=== PATIENT | female | born 1990 | race Caucasian/White ===

== ENCOUNTER → 2016-11-01 | Outpatient (CLI) | payer OTHER | END | disposition home or self-care (01) | LOC: LABWHC1 16:47 | PROVIDERS: ATTEND Obstetrics & Gynecology | DX: Z34.80 Encounter for supervision of other normal pregnancy, unspecified trimester (principal); Z3A.00 Weeks of gestation of pregnancy not specified | CPT/HCPCS: 36415; 84702 ==

== ENCOUNTER 2017-06-22 04:25 | Inpatient (IN) | payer OTHER ==
[2017-06-22] MEDS ORDERED: METHYLERGONOVINE 0.2 MG/ML 1 ML AMP IM PRN (04:43)
[2017-06-22] MEDS ORDERED: LIDOCAINE 1% (PF) 10 MG/ML (30 ML SDV) SQ PRN (04:43)
[2017-06-22] MEDS ORDERED: AMPICILLIN 2,000 MG in SODIUM CHLORIDE 0.9% 100 ML IVPB STA (04:43)
[2017-06-22] MEDS ORDERED: CARBOPROST TROMETHAMINE 250 MCG/ML 1 ML AMP IM PRN (04:43)
[2017-06-22] MEDS ORDERED: OXYTOCIN 10 UNIT/ML 1 ML VIAL IM PRN (04:43)
[2017-06-22] MEDS ORDERED: TERBUTALINE 1 MG/ML VIAL SQ PRN (04:43)
[2017-06-22] MEDS ORDERED: LACTATED RINGERS 1,000 ML IV SCH (04:45)
[2017-06-22 04:59] VITALS: BMI 36.4
[2017-06-22 05:13] LABS: Basophils % (A) 0 %; Eosinophils # (A) 0.1 k/uL (0-0.7); Eosinophils % (A) 1 %; HCT 35.4 % (34.0-46.0); HGB 12.1 gm/dL (11.4-16.0); Lymphocytes % (A) 27 %; MCH 28.8 pg (25.0-35.0); MCHC 34.2 g/dL (31.0-37.0); MCV 84.2 fL (80.0-100.0); Mean Platelet Volume 10.3; Monocytes # (A) 0.7 k/uL (0-1.0); Monocytes % (A) 6 %; Neutrophils # (A) 7.3 k/uL (1.3-7.7); Neutrophils % (A) 64 %; Platelet Count 216 k/uL (150-450); Poikilocytosis Slight; RBC 4.21 m/uL (3.80-5.40); RDW 13.4 % (11.5-15.5); WBC 11.4 k/uL (3.8-10.6)
[2017-06-22] MEDS: LACTATED RINGERS 1,000 ML IV SCH ×2 (05:16→06:00)
[2017-06-22] MEDS ORDERED: BUPIVACAINE (PF) 0.25% 30 ML VIAL ONE (05:42)
[2017-06-22] MEDS ORDERED: fentaNYL (PF) 50 MCG/ML 5 ML AMP ONE (05:42)
[2017-06-22] MEDS ORDERED: SODIUM CHLORIDE 0.9% 100 ML BAG ONE (05:42)
[2017-06-22] MEDS ORDERED: BUPIVACAINE (PF) 0.25% 25 ML, fentaNYL (PF) 200 MCG in SODIUM CHLORIDE 0.9% 71 ML EPIDURAL ONE (06:09)
[2017-06-22] MEDS ORDERED: diphenhydrAMINE 50 MG CAP PO PRN (08:52)
[2017-06-22] MEDS ORDERED: SIMETHICONE 80 MG CHEWABLE PO PRN (08:52)
[2017-06-22] MEDS ORDERED: diphenhydrAMINE 50 MG/ML 1 ML VIAL IVP PRN ×2 (08:52)
[2017-06-22] MEDS ORDERED: LANOLIN CREAM 5 GM TUBE TOPICAL PRN (08:52)
[2017-06-22] MEDS ORDERED: BENZOCAINE/MENTHOL SPRAY 1 GM/SPRAY AEROSOL TOPICAL PRN (08:52)
[2017-06-22] MEDS ORDERED: HYDROCORTISONE 2.5% RECTAL CREAM 30 GM TUBE RECTAL PRN (08:52)
[2017-06-22] MEDS ORDERED: ZOLPIDEM 5 MG TAB PO PRN (08:52)
[2017-06-22] MEDS ORDERED: WITCH HAZEL 1 EACH MED..PAD TOPICAL PRN (08:52)
[2017-06-22] MEDS ORDERED: diphenhydrAMINE 25 MG CAP PO PRN (08:52)
--- NOTE | 2017-06-22 08:56 | P.HPOB ---
History of Present Illness H&P Date: 06/22/17 Chief Complaint: Intrauterine at term: Active labor Patient is a 27-year-old at 39 weeks gestation arise in active labor making cervical change. Her course itself was unremarkable other than some ligamentous pain throughout the . She also had some reflux. However at this time she is doing well and feeling well. She was dilated to 4 cm heart tones in the 140s and reactive. Pertinent labs include O+ blood type Rh antibody negative, rubella immune, hepatitis B surface antigen and RPR were negative GBS however was positive. Past Medical History Past Medical History: No Reported History History of Any Multi-Drug Resistant Organisms: ESBL Date of last positivie culture/infection: 02/04/2014 MDRO Source:: Urine Past Surgical History: No Surgical Hx Reported Past Anesthesia/Blood Transfusion Reactions: No Reported Reaction Past Psychological History: Anxiety, Bipolar, Depression Smoking Status: Never smoker Past Alcohol Use History: Occasional Past Drug Use History: Marijuana - Past Family History Mother Family Medical History: No Reported History Medications and Allergies Home Medications Medication Instructions Recorded Confirmed Type Nfb-Qzpc-Twfnn Acid 1 each PO DAILY 30 Days cap 01/25/14 06/22/17 Rx [-U Capsule (formulary)] Allergies Allergy/AdvReac Type Severity Reaction Status Date / Time No Known Allergies Allergy Verified 06/22/17 04:28 Exam Osteopathic Statement: *. No significant issues noted on an osteopathic structural exam other than those noted in the History and Physical/Consult. - Vital Signs Vital signs: Vital Signs Temp Pulse Resp BP Pulse Ox 06/22/17 04:54 97.5 F L 107 H 18 127/84 06/22/17 04:45 97.0 F L 100 18 132/91 100 Intake and Output 06/21/17 06/22/17 06/22/17 22:59 06:59 14:59 Other: # Voids 1 Weight 99.337 kg - OBG Physical Exam Breast: both: normal (no masses) Abdomen: bowel sounds normal, no diffuse tenderness, no bruit present, no guarding noted, no hepatomegaly, no splenomegaly, no mass Vulva: both: normal Vagina: normal moisture, no discharge Cervix: no lesion, no discharge Uterus: normal size, normal contour Adnexa: both: normal Anus/Rectum: normal perianal skin, no rectal mass, no hemorrhoids, heme negative Results Result Diagrams: 06/22/17 05:00 Abnormal Lab Results - Last 24 Hours (Table) 06/22/17 Range/Units 05:00 WBC 11.4 H (3.8-10.6) k/uL Assessment and Plan Assessment: Intrauterine at term: Active labor Group B strep positive Plan antibiotics for group B strep and anticipate spontaneous vaginal delivery with epidural for analgesia
--- NOTE | 2017-06-22 08:59 | P.PROBDLV ---
Vaginal Delivery Note - . Vaginal Delivery Note: Patient progressed to complete and pushing with spontaneous vaginal delivery of a viable female over a first repair the laceration. Following delivery of the head nuchal cord 1 was noted and easily reduced. Interim posterior shoulders were then delivered with gentle downward upper traction and baby was delivered from left occiput anterior position. Baby was delivered was placed on mother's abdomen where after 30 seconds of pulsation the umbilical cord was clamped cut usual fashion. Nursery personnel was then present to assume care. Placenta was then delivered intact and Pitocin was added to the IV. First degree laceration was then repaired in interrupted fashion with 3-0 Vicryl following 1% Xylocaine for analgesia. Weight was 8 lbs. 6 oz. scores were 8 and 8 at one and 5 minutes. Both mother and baby are stable following delivery.
[2017-06-22] MEDS ORDERED: AMPICILLIN 1,000 MG in SODIUM CHLORIDE 0.9% 50 ML IVPB SCH (09:00)
[2017-06-22] MEDS: IBUPROFEN 600 MG TAB PO PRN (18:33)
[2017-06-22] MEDS: SENNOSIDES-DOCUSATE SODIUM 1 EACH TAB PO SCH (19:44)
[2017-06-22] MEDS: ACETAMINOPHEN TAB 325 MG TAB PO PRN (19:45)
[2017-06-23] MEDS: SENNOSIDES-DOCUSATE SODIUM 1 EACH TAB PO SCH ×2 (07:15→22:38)
[2017-06-23] MEDS: IBUPROFEN 600 MG TAB PO PRN ×2 (07:15→19:58)
[2017-06-23] MEDS: LACTATED RINGERS 1,000 ML IV SCH ×2 (07:40→14:49)
--- NOTE | 2017-06-23 08:02 | P.PNOBGVD ---
Subjective - Subjective Principal diagnosis: day 1 Interval history: Doing very well. Vital signs are stable and afebrile. Voices no complaints. Patient reports: Reports appetite normal, Reports voiding normally, Reports pain well controlled, Reports ambulating normally : doing well Objective - Latest Vital Signs Latest vital signs: Vital Signs Temp Pulse Resp BP 06/23/17 00:00 97.6 F 64 16 121/72 06/22/17 20:00 97.8 F 80 16 131/69 06/22/17 16:47 98.2 F 71 16 129/67 06/22/17 11:04 76 16 114/63 06/22/17 10:15 97.9 F 82 16 113/56 06/22/17 09:54 81 16 112/56 06/22/17 09:30 81 16 116/59 06/22/17 09:15 75 16 120/59 06/22/17 09:00 98.6 F 81 16 120/59 06/22/17 08:45 95 16 132/79 Intake and Output 06/22/17 06/23/17 06/23/17 22:59 06:59 14:59 Intake Total 600 600 Balance 600 600 Intake: Oral 600 600 - Exam Lungs: bilateral: normal Chest: Normal S1, Normal S2 Extremities: Present: normal Abdomen: Present: normal appearance, soft Uterus: Present: normal, firm
[2017-06-23] MEDS: ACETAMINOPHEN TAB 325 MG TAB PO PRN ×2 (10:52→18:48)
--- NOTE | 2017-06-24 07:07 | P.DS ---
Providers Date of admission: 06/22/17 04:43 Expected date of discharge: 06/24/17 Attending physician: Omsar Ascencio Primary care physician: Stated None Hospital Course: Patient is doing very well day 2. She is ambulating, voiding and she is tolerating her diet. She voices no complaints. Vital signs are stable afebrile. On physical exam heart regular, lungs clear, extremities without pain. Abdomen soft uterus is firm, lochia is reported be light. Assessment day 2. Plan discharged home follow up with me in 6 weeks. Discharge instructions are thoroughly reviewed and prescription for Motrin and a breast pump have been provided. Patient Condition at Discharge: Good Plan - Discharge Summary New Discharge Prescriptions: New Ibuprofen [Motrin] 600 mg PO Q6HR PRN #30 tab PRN Reason: Pain No Action Asb-Lazv-Eukqj Acid [-U Capsule (formulary)] 1 each PO DAILY 30 Days cap Discharge Medication List Qws-Xgdc-Ytrdy Acid [-U Capsule (formulary)] 1 each PO DAILY 30 Days cap 01/25/14 [Rx] Ibuprofen [Motrin] 600 mg PO Q6HR PRN #30 tab 06/23/17 [Rx] Follow up Appointment(s)/Referral(s): Osmar Ascencio DO [Doctor of Osteopathic Medicine] - 6 Weeks Activity/Diet/Wound Care/Special Instructions: No heavy lifting, limit stairs and driving and pelvic rest. If any high temperatures, heavy bleeding, or severe pain call my office Discharge Disposition: HOME SELF-CARE
[2017-06-24] MEDS: IBUPROFEN 600 MG TAB PO PRN (07:22)
[2017-06-24 08:01] VITALS: BP 121/73; PULSE 73; RESP 15; TEMP 97.8
== END 2017-06-24 14:35 | disposition home or self-care (01) | DRG 775 ==
LOC: FBPOP 04:25 → 4FBP 04:43
PROVIDERS: ADMIT Obstetrics & Gynecology; ATTEND Obstetrics & Gynecology
PROC: 10E0XZZ Delivery of Products of Conception, External Approach (ICD-10-PCS; principal; 2017-06-22)
PROC: 0HQ9XZZ Repair Perineum Skin, External Approach (ICD-10-PCS; 2017-06-22)
PROC: 00HU33Z Insertion of Infusion Device into Spinal Canal, Percutaneous Approach (ICD-10-PCS; 2017-06-22)
PROC: 3E0R3BZ Introduction of Anesthetic Agent into Spinal Canal, Percutaneous Approach (ICD-10-PCS; 2017-06-22)
DX: O99.824 Streptococcus B carrier state complicating childbirth (principal); Z37.0 Single live birth; O69.81X0 Labor and delivery complicated by cord around neck, without compression, not applicable or unspecified; O70.0 First degree perineal laceration during delivery; O99.62 Diseases of the digestive system complicating childbirth; Z3A.39 39 weeks gestation of pregnancy; K21.9 Gastro-esophageal reflux disease without esophagitis; Z79.899 Other long term (current) drug therapy; Z86.19 Personal history of other infectious and parasitic diseases; Z86.59 Personal history of other mental and behavioral disorders
CPT/HCPCS: 59025; 85025; 88307; 99213

== ENCOUNTER 2019-03-02 13:10 | Emergency (ER) | payer OTHER ==
[2019-03-02 13:32] VITALS: BP 124/81; PULSE 127; RESP 20
[2019-03-02] MEDS: ACETAMINOPHEN TAB 325 MG TAB PO STA (13:51)
--- NOTE | 2019-03-02 14:08 | XR ---
EXAMINATION TYPE: XR chest 2V DATE OF EXAM: 03/02/2019 COMPARISON: NONE HISTORY: Fever, and congestion TECHNIQUE: Frontal and lateral views of the chest are obtained. FINDINGS: There is no focal air space opacity, pleural effusion, or pneumothorax seen. The cardiac silhouette size is within normal limits. The osseous structures are intact. IMPRESSION: No acute cardiopulmonary process.
--- NOTE | 2019-03-02 15:01 | ED ---
URI HPI - General Chief Complaint: Upper Respiratory Infection Stated Complaint: poss flu Time Seen by Provider: 03/02/19 13:40 Source: patient Mode of arrival: ambulatory Limitations: no limitations - History of Present Illness Initial Comments: 28-year-old female with childhood vaccinations up-to-date presents emergency department today for fever cough congestion x 48 hours. She states all 4 other people in her household have identical symptoms she states it began with her son approximately 5-7 days ago. She states she's also had a sore throat. Today fever was 102. Patient denies nausea, vomiting, diarrhea, rash, neck stiffness, headache. Admit to body aches. Patient appears nontoxic on arrival, no respiratory distress. Oxygenating well room air hemodynamically stable. - Related Data Previous Rx's Medication Instructions Recorded Fvc-Jjgl-Kqynf Acid 1 each PO DAILY 30 Days cap 01/25/14 [-U Capsule (formulary)] Ibuprofen [Motrin] 600 mg PO Q6HR PRN #30 tab 06/23/17 Oseltamivir [Tamiflu] 75 mg PO Q12HR 5 Days #10 cap 03/02/19 Allergies Allergy/AdvReac Type Severity Reaction Status Date / Time No Known Allergies Allergy Verified 03/02/19 13:31 Review of Systems ROS Statement: Those systems with pertinent positive or pertinent negative responses have been documented in the HPI. ROS Other: All systems not noted in ROS Statement are negative. Past Medical History Past Medical History: No Reported History History of Any Multi-Drug Resistant Organisms: ESBL Date of last positivie culture/infection: 02/04/2014 MDRO Source:: Urine Past Surgical History: No Surgical Hx Reported Past Anesthesia/Blood Transfusion Reactions: No Reported Reaction Past Psychological History: Anxiety, Bipolar, Depression Smoking Status: Never smoker Past Alcohol Use History: Occasional Past Drug Use History: Marijuana - Past Family History Mother Family Medical History: No Reported History General Exam - General Exam Comments Initial Comments: General: The patient is awake and alert, in no distress Eye: +3 mm pupils are equal, round and reactive to light, extra-ocular movements are intact. No nystagmus. There is normal conjunctiva bilaterally. No signs of icterus. No photophobia Ears, nose, mouth and throat: There are moist mucous membranes and no oral lesions. Oropharynx was not erythematous there is no tonsillar enlargement exudates or lesions. Uvula midline. Tympanic membranes are not erythematous or is no effusions bulging or retraction. No tenderness to palpation of the mastoid. No anterior cervical lymphadenopathy. Rhinorrhea, clear and bilateral nares. No tripoding, no drooling. Neck: The neck is supple, there is no tenderness or JVD. No nuchal rigidity Cardiovascular: There is a regular rate and rhythm. No murmur, rub or gallop is appreciated. Respiratory: Lungs are clear to auscultation, respirations are non-labored, breath sounds are equal. No wheezes, stridor, rales, or rhonchi. No retractions or abdominal breathing. Gastrointestinal: Soft, non-distended, non-tender abdomen without masses or organomegaly noted. There is no rebound or guarding present. Bowel sounds are unremarkable. Musculoskeletal: Normal ROM, no tenderness. Strength 5/5. Sensation intact. Radial pulses equal bilaterally 2+. Neurological: A&O x 3. CN II-XII intact grossly, There are no obvious motor or sensory deficits. Coordination appears grossly intact. Speech appears normal, no muffling. Skin: Skin is warm and dry and no rashes or lesions are noted. No extremity edema Psychiatric: Cooperative Limitations: no limitations Course Vital Signs 03/02/19 03/02/19 03/02/19 13:31 13:59 15:15 Temperature 101.7 F H 101.6 F H 100.2 F H Pulse Rate 127 H Respiratory 20 Rate Blood Pressure 124/81 O2 Sat by Pulse 97 Oximetry Medical Decision Making - Medical Decision Making 28-year-old female presenting today for chief complaint of fever, cough congestion. Influenza B-positive. Positive sick contacts. Chest x-ray clear. Oxygen while room air does not appear in respiratory distress with clear lung sounds. At this time feel patient is stable for discharge with Tamiflu as symptoms have been ongoing for less than 72 hours. Patient is agreeable to this care plan as well as use of antipyretics for fever treatment. Return parameters were discussed at length and patient was discharged appearing well_Case discussed wt Dr. Rahman - Lab Data Lab Results 03/02/19 Range/Units 13:30 Influenza Type A RNA Not Detected (Not Detectd) Influenza Type B (PCR) Detected H (Not Detectd) Disposition Clinical Impression: Fever, Cough, Influenza B Disposition: HOME SELF-CARE Condition: Good Instructions (If sedation given, give patient instructions): Influenza (ED) Additional Instructions: Please use medication as discussed. Please follow-up with family doctor in the next 2 days. Please return to emergency room if the symptoms increase or worsen or for any other concerns. Prescriptions: Oseltamivir [Tamiflu] 75 mg PO Q12HR 5 Days #10 cap Is patient prescribed a controlled substance at d/c from ED?: No Referrals: None,Stated [Primary Care Provider] - 1-2 days Time of Disposition: 15:01
[2019-03-02 15:16] VITALS: TEMP 100.2
== END 2019-03-02 15:15 | disposition home or self-care (01) ==
LOC: EC 13:10
DX: J10.1 Influenza due to other identified influenza virus with other respiratory manifestations (principal); Z20.89 Contact with and (suspected) exposure to other communicable diseases
CPT/HCPCS: 71046; 87502; 99283

== ENCOUNTER 2023-07-11 09:28 | Emergency (ER) | payer OTHER ==
[2023-07-11 10:13] VITALS: RESP 16
--- NOTE | 2023-07-11 10:23 | ED ---
Skin/Abscess/FB HPI - General Chief complaint: Skin/Abscess/Foreign Body Stated complaint: Rash Time Seen by Provider: 07/11/23 09:50 Source: patient Mode of arrival: ambulatory Limitations: no limitations - History of Present Illness Initial comments: This is a 33-year-old female presents emergency department chief complaint of a rash to her scalp and neck. Patient states that she noticed the rash off on her scalp 3 days ago that is pruritic. Additionally the areas in her neck Began popping up over the past day. She reports feelings of malaise in addition to the areas being pruritic with mild discharge. Patient has a history of chickenpox virus, denies history of shingles. She denies you use of soaps, detergents, lotions or fragrances. Has fevers, nausea, vomiting, rhinorrhea, cough. Denies paresthesias of the face or tenderness or decrease in hearing. - Related Data Previous Rx's Medication Instructions Recorded Cjz-Ygsc-Eusyn Acid 1 each PO DAILY 30 Days cap 01/25/14 [-U Capsule (formulary)] Ibuprofen [Motrin] 600 mg PO Q6HR PRN #30 tab 06/23/17 Oseltamivir [Tamiflu] 75 mg PO Q12HR 5 Days #10 cap 03/02/19 Acyclovir [Zovirax] 800 mg PO TID #30 tab 07/11/23 predniSONE 50 mg PO DAILY #5 tab 07/11/23 Allergies Allergy/AdvReac Type Severity Reaction Status Date / Time No Known Allergies Allergy Verified 07/11/23 09:47 Review of Systems ROS Statement: Those systems with pertinent positive or pertinent negative responses have been documented in the HPI. ROS Other: All systems not noted in ROS Statement are negative. Past Medical History Past Medical History: No Reported History History of Any Multi-Drug Resistant Organisms: ESBL Date of last positivie culture/infection: 02/04/2014 MDRO Source:: Urine Past Surgical History: No Surgical Hx Reported Past Anesthesia/Blood Transfusion Reactions: No Reported Reaction Past Psychological History: Anxiety, Bipolar, Depression Smoking Status: Vaper Past Alcohol Use History: Occasional Past Drug Use History: Marijuana - Past Family History Mother Family Medical History: No Reported History General Exam Limitations: no limitations General appearance: alert, in no apparent distress Head exam: Present: other (erythematous scabbing ) Course Vital Signs 07/11/23 07/11/23 09:44 10:48 Temperature 98.8 F 98.3 F Pulse Rate 84 82 Respiratory 16 16 Rate Blood Pressure 117/73 119/81 O2 Sat by Pulse 100 99 Oximetry Medical Decision Making - Medical Decision Making Was pt. sent in by a medical professional or institution (BINDU Fernandez, F[employer]IC DES[employer]ER, urgent care, hospital, or senior care...) When possible be specific @ -No Did you speak to anyone other than the patient for history (EMS, parent, family, police, friend...)? What history was obtained from this source @ -No Did you review nursing and triage notes (agree or disagree)? Why? @ -I reviewed and agree with nursing and triage notes Were old charts reviewed (outside hosp., previous admission, EMS record, old EKG, old radiological studies, urgent care reports/EKG's, senior care records)? Report findings @ -No old charts were reviewed Differential Diagnosis (chest pain, altered mental status, abdominal pain women, abdominal pain men, vaginal bleeding, weakness, fever, dyspnea, syncope, headache, dizziness, GI bleed, back pain, seizure, CVA, palpatations, mental health, musculoskeletal)? @ -shingles, dermatitis, contact allergen, eczema, this list is not all inclusive EKG interpreted by me (3pts min.). @ -none X-rays interpreted by me (1pt min.). @ -None done CT interpreted by me (1pt min.). @ -None done U/S interpreted by me (1pt. min.). @ -None done What testing was considered but not performed or refused? (CT, X-rays, U/S, labs)? Why? @ -None What meds were considered but not given or refused? Why? @ -None Did you discuss the management of the patient with other professionals (professionals i.e. BINDU Fernandez, FABRIC DESIGNER, lab, RT, psych nurse, high school social studies teacher, testing tech, teacher, trust officer, case mgr)? Give summary @ -No Was smoking cessation discussed for >3mins.? @ -No Was critical care preformed (if so, how long)? @ -No Were there social determinants of health that impacted care today? How? (Homelessness, low income, unemployed, alcoholism, drug addiction, transportation, low edu. Level, literacy, decrease access to med. care, group home, rehab)? @ -No Was there de-escalation of care discussed even if they declined (Discuss DNR or withdrawal of care, Hospice)? DNR status @ -No What co-morbidities impacted this encounter? (DM, HTN, Smoking, COPD, CAD, Cancer, CVA, ARF, Chemo, Hep., AIDS, mental health diagnosis, sleep apnea, morbid obesity)? @ -None Was patient admitted / discharged? Hospital course, mention meds given and route, prescriptions, significant lab abnormalities, going to OR and other pertinent info. @ -33-year-old female with a history of a rash. On examination patient noted to have a macular vesicular rash on her posterior neck and area of scabbing on her scalp. Additionally there is erythematous papular vesicular rash on the anterior neck. This rash does not cross the dermatome that is consistent with shingles. Patient will be provided with an outpatient prescription for acyclovir and prednisone. Discussion with patient at bedside that the infection is contagious with exposed areas of skin. All questions answered at bedside. Strict return parameters jessica with the patient. Stable for discharge. Case discussed with Dr. Mason Undiagnosed new problem with uncertain prognosis? @ -No Drug Therapy requiring intensive monitoring for toxicity (Heparin, Nitro, Insulin, Cardizem)? @ -No Were any procedures done? @ -No Diagnosis/symptom? @ -Shingles Acute, or Chronic, or Acute on Chronic? @ -Acute Uncomplicated (without systemic symptoms) or Complicated (systemic symptoms)? @ -Uncomplicated Side effects of treatment? @ -No Exacerbation, Progression, or Severe Exacerbation? @ -No Poses a threat to life or bodily function? How? (Chest pain, [place], [place], pneumonia, PE, COPD, DKA, ARF, appy, cholecystitis, CVA, Diverticulitis, Homicidal, Suicidal, threat to staff... and all critical care pts) @ -No Disposition Clinical Impression: Shingles Narrative: Return to the emergency department if symptoms worsen or do not improve. Complete full course of antivirals and steroids. Disposition: HOME SELF-CARE Condition: Good Instructions (If sedation given, give patient instructions): Shingles (ED) Prescriptions: predniSONE 50 mg PO DAILY #5 tab Acyclovir [Zovirax] 800 mg PO TID #30 tab Is patient prescribed a controlled substance at d/c from ED?: No Referrals: Ny Hui PAC [Primary Care Provider] - 1-2 days Time of Disposition: 10:43
[2023-07-11 11:13] VITALS: BP 119/81; PULSE 82; TEMP 98.3
== END 2023-07-11 10:59 | disposition home or self-care (01) ==
LOC: EC 09:28
DX: B02.9 Zoster without complications (principal); F17.290 Nicotine dependence, other tobacco product, uncomplicated; F12.90 Cannabis use, unspecified, uncomplicated
CPT/HCPCS: 99282

== ENCOUNTER 2024-03-02 15:07 | Inpatient (IN) | payer OTHER ==
--- NOTE | 2024-03-02 15:57 | ED ---
Abdominal Pain HPI - General Source: patient, RN notes reviewed Mode of arrival: ambulatory Limitations: no limitations <Jacqui Macias - Last Filed: 03/02/24 15:56> <Karen Ross - Last Filed: 03/02/24 22:02> - General Chief Complaint: Abdominal Pain Stated Complaint: abd pain Time Seen by Provider: 03/02/24 15:56 - History of Present Illness Initial Comments: Quick note: 33-year-old female presented to the ER for evaluation of abdominal pain. She states yesterday she started to experience an intense generalized abdominal pain. She states today is more localized to the right lower quadrant. She states it feels like her abdomen is swollen. Admits to nausea. No vomiting. Patient denies any fevers, constipation/diarrhea, history of surgeries or urinary complaints. No vaginal bleeding (Jacqui Macias) 33-year-old female presents to the emergency department for evaluation of right lower abdominal pain. Patient states that this started yesterday. Patient states that at that time it was a generalized pain but is now localized to the right lower quadrant. She admits to nausea without vomiting. Denies recent fever, chills. Reports normal bowel movements. Denies any urinary frequency, dysuria. Denies any prior abdominal surgeries. (Karen Ross) - Related Data Home Medications Medication Instructions Recorded Confirmed No Known Home Medications 03/02/24 03/02/24 Allergies Allergy/AdvReac Type Severity Reaction Status Date / Time No Known Allergies Allergy Verified 03/02/24 18:08 Review of Systems ROS Other: All systems not noted in ROS Statement are negative. <Jacqui Macias - Last Filed: 03/02/24 15:56> ROS Other: All systems not noted in ROS Statement are negative. <Karen Ross - Last Filed: 03/02/24 22:02> ROS Statement: Those systems with pertinent positive or pertinent negative responses have been documented in the HPI. Past Medical History Past Medical History: No Reported History, Thyroid Disorder History of Any Multi-Drug Resistant Organisms: ESBL Date of last positivie culture/infection: 02/04/2014 MDRO Source:: Urine Past Surgical History: No Surgical Hx Reported Past Anesthesia/Blood Transfusion Reactions: No Reported Reaction Past Psychological History: Anxiety, Bipolar, Depression Smoking Status: Vaper Past Alcohol Use History: Occasional Past Drug Use History: Marijuana - Past Family History Mother Family Medical History: No Reported History <Jacqui Macias - Last Filed: 03/02/24 15:56> General Exam Limitations: no limitations <Jacqui Macias - Last Filed: 03/02/24 15:56> Limitations: no limitations General appearance: alert, in no apparent distress Head exam: Present: atraumatic, normocephalic, normal inspection Eye exam: Present: normal appearance, PERRL, EOMI. Absent: scleral icterus, conjunctival injection, periorbital swelling ENT exam: Present: normal exam, mucous membranes moist Respiratory exam: Present: normal lung sounds bilaterally. Absent: respiratory distress, wheezes, rales, rhonchi, stridor Cardiovascular Exam: Present: regular rate, normal rhythm, normal heart sounds. Absent: systolic murmur, diastolic murmur, rubs, gallop, clicks GI/Abdominal exam: Present: soft, tenderness (Right lower quadrant), rebound, normal bowel sounds. Absent: distended, guarding, rigid Extremities exam: Present: normal inspection, full ROM, normal capillary refill. Absent: tenderness, pedal edema, joint swelling, calf tenderness Neurological exam: Present: alert, oriented X3 Psychiatric exam: Present: normal affect, normal mood Skin exam: Present: warm, dry, intact, normal color. Absent: rash <Karen Ross - Last Filed: 03/02/24 22:02> - General Exam Comments Initial Comments: Visual Physical Exam Vital signs reviewed General: Well-appearing, nontoxic, no acute distress. Head: Normocephalic, atraumatic Eyes: PERRLA, EOMI ENT: Airway patent Chest: Nonlabored breathing Skin: No visual rash, normal skin tone Neuro: Alert and oriented 3 Musculoskeletal: No gross abnormalities (Jacqui Macias) Course Vital Signs 03/02/24 03/02/24 03/02/24 15:12 18:17 20:07 Temperature 98.7 F Pulse Rate 91 90 72 Respiratory 21 18 18 Rate Blood Pressure 106/70 110/70 118/79 O2 Sat by Pulse 100 99 98 Oximetry Medical Decision Making <Jacqui Macias - Last Filed: 03/02/24 15:56> - Lab Data Result diagrams: 03/02/24 16:31 03/02/24 16:31 <Karen Ross - Last Filed: 03/02/24 22:02> - Medical Decision Making I performed the quick note portion of this chart. Electronically signed by Jacqui Macias PA-C (Jacqui Macias) Was pt. sent in by a medical professional or institution (BINDU Fernandez, METAL SHEET ROLLER OPERATOR, urgent care, hospital, or [facility]...) When possible be specific @ -No Did you speak to anyone other than the patient for history (EMS, parent, family, police, friend...)? What history was obtained from this source @ -No Did you review nursing and triage notes (agree or disagree)? Why? @ -I reviewed and agree with nursing and triage notes Were old charts reviewed (outside hosp., previous admission, EMS record, old EKG, old radiological studies, urgent care reports/EKG's, [facility] records)? Report findings @ -No old charts were reviewed Differential Diagnosis (chest pain, altered mental status, abdominal pain women, abdominal pain men, vaginal bleeding, weakness, fever, dyspnea, syncope, headache, dizziness, GI bleed, back pain, seizure, CVA, palpatations, mental health, musculoskeletal)? @ -Differential Abdominal Pain Women: Appendicitis, Cholecystitis, diverticulosis, ischemic bowel, pancreatitis, hepatitis, UTI, gastroenteritis, AAA, incarcerated hernia, bowel obstruction, constipation, inflammatory bowel, hepatitis, peptic ulcer disease, splenic inf arction, perforated viscus, vulvitis, ovarian torsion, PID, kidney stone, placenta abruption, this is not meant to be an all-inclusive list EKG interpreted by me (3pts min.). @ -None X-rays interpreted by me (1pt min.). @ -None done CT interpreted by me (1pt min.). @ -CT abdomen pelvis shows mild inflammatory changes and mild dilation of the appendix U/S interpreted by me (1pt. min.). @ -None done What testing was considered but not performed or refused? (CT, X-rays, U/S, labs)? Why? @ -None What meds were considered but not given or refused? Why? @ -None Did you discuss the management of the patient with other professionals (professionals i.e. BINDU Fernandez, METAL SHEET ROLLER OPERATOR, lab, RT, psych nurse, social services director, direct chill caster, teacher, cash management officer, case assistant)? Give summary @ -Case discussed with Dr. Ramirez, patient started on antibiotics, made n.p.o. Was smoking cessation discussed for >3mins.? @ -No Was critical care preformed (if so, how long)? @ -No Were there social determinants of health that impacted care today? How? (Homelessness, low income, unemployed, alcoholism, drug addiction, tra nsportation, low edu. Level, literacy, decrease access to med. care, [facility], rehab)? @ -No Was there de-escalation of care discussed even if they declined (Discuss DNR or withdrawal of care, Hospice)? DNR status @ -No What co-morbidities impacted this encounter? (DM, HTN, Smoking, COPD, CAD, Cancer, CVA, ARF, Chemo, Hep., AIDS, mental health diagnosis, sleep apnea, morbid obesity)? @ -None Was patient admitted / discharged? Hospital course, mention meds given and route, prescriptions, significant lab abnormalities, going to OR and other pertinent info. @ -Admitted. Patient presented to emergency department for evaluation of right-sided abdominal pain. Laboratory studies obtainedThere is no significant leukocytosis, hemoglobin stable; no significant lactic acidosis, CMP essentially unremarkable. UA shows 1+ ketones, positive nitrate, moderate leukocyte esterase, urine hCG negative. CT abdomen pelvis shows mild inflammatory changes and dilation of the appendix. Case was discussed with general surgery, Dr. Ramirez. Patient provided initial dose of Zosyn, IV fluids. Patient made NPO. Discussed findings with patient. She is understanding agreeable with plan. Patient stable at time of admission. Case discussed with Dr. Torres Undiagnosed new problem with uncertain prognosis? @ -No Drug Therapy requiring intensive monitoring for toxicity (Heparin, Nitro, Insulin, Cardizem)? @ -No Were any procedures done? @ -No Diagnosis/symptom? @ -Appendicitis Acute, or Chronic, or Acute on Chronic? @ -Acute Uncomplicated (without systemic symptoms) or Complicated (systemic symptoms)? @ -Uncomplicated Side effects of treatment? @ -No Exacerbation, Progression, or Severe Exacerbation? @ -No Poses a threat to life or bodily function? How? (Chest pain, USA, DC, pneumonia, PE, COPD, DKA, ARF, appy, cholecystitis, CVA, Diverticulitis, Homicidal, Suicidal, threat to staff... and all critical care pts) @ -No (Karen Ross) - Lab Data Lab Results 03/02/24 03/02/24 03/02/24 Range/Units 16:31 16:31 16:31 WBC 7.6 (3.8-10.6) k/uL RBC 4.75 (3.80-5.40) m/uL Hgb 15.0 (11.4-16.0) gm/dL Hct 44.5 (34.0-46.0) % MCV 93.8 (80.0-100.0) fL MCH 31.6 (25.0-35.0) pg MCHC 33.7 (31.0-37.0) g/dL RDW 11.5 (11.5-15.5) % Plt Count 251 (150-450) k/uL MPV 8.3 Neutrophils % 70 % Lymphocytes % 20 % Monocytes % 7 % Eosinophils % 1 % Basophils % 0 % Neutrophils # 5.3 (1.3-7.7) k/uL Lymphocytes # 1.6 (1.0-4.8) k/uL Monocytes # 0.5 (0-1.0) k/uL Eosinophils # 0.1 (0-0.7) k/uL Basophils # 0.0 (0-0.2) k/uL Sodium 138 (137-145) mmol/L Potassium 4.7 (3.5-5.1) mmol/L Chloride 103 (98-107) mmol/L Carbon Dioxide 22 (22-30) mmol/L Anion Gap 13 mmol/L BUN 15 (7-17) mg/dL Creatinine 0.76 (0.52-1.04) mg/dL Est GFR (CKD-EPI)AfAm >90 (>60 ml/min/1.73 sqM) Est GFR (CKD-EPI)NonAf >90 (>60 ml/min/1.73 sqM) Glucose 98 (74-99) mg/dL Plasma Lactic Acid Abhijit (0.7-2.0) mmol/L Calcium 10.2 (8.4-10.2) mg/dL Total Bilirubin 0.5 (0.2-1.3) mg/dL AST 26 (14-36) U/L ALT 20 (4-34) U/L Alkaline Phosphatase 77 (38-126) U/L Total Protein 7.5 (6.3-8.2) g/dL Albumin 4.5 (3.5-5.0) g/dL Amylase 53 (30-110) U/L Lipase 78 (23-300) U/L Urine Color Light Yellow Urine Appearance Cloudy H (Clear) Urine pH 5.5 (5.0-8.0) Ur Specific [place] 1.022 (1.001-1.035) Urine Protein Negative (Negative) Urine Glucose (UA) Negative (Negative) Urine Ketones 1+ H (Negative) Urine Blood Negative (Negative) Urine Nitrite Positive H (Negative) Urine Bilirubin Negative (Negative) Urine Urobilinogen <2.0 (<2.0) mg/dL Ur Leukocyte Esterase Moderate H (Negative) Urine RBC 3 (0-5) /hpf Urine WBC 10 H (0-5) /hpf Ur Squamous Epith Cells 8 H (0-4) /hpf Urine Bacteria Moderate H (None) /hpf Urine Mucus Rare H (None) /hpf Urine HCG, Qual (Not Detectd) 03/02/24 03/02/24 Range/Units 16:31 16:31 WBC (3.8-10.6) k/uL RBC (3.80-5.40) m/uL Hgb (11.4-16.0) gm/dL Hct (34.0-46.0) % MCV (80.0-100.0) fL MCH (25.0-35.0) pg MCHC (31.0-37.0) g/dL RDW (11.5-15.5) % Plt Count (150-450) k/uL MPV Neutrophils % % Lymphocytes % % Monocytes % % Eosinophils % % Basophils % % Neutrophils # (1.3-7.7) k/uL Lymphocytes # (1.0-4.8) k/uL Monocytes # (0-1.0) k/uL Eosinophils # (0-0.7) k/uL Basophils # (0-0.2) k/uL Sodium (137-145) mmol/L Potassium (3.5-5.1) mmol/L Chloride (98-107) mmol/L Carbon Dioxide (22-30) mmol/L Anion Gap mmol/L BUN (7-17) mg/dL Creatinine (0.52-1.04) mg/dL Est GFR (CKD-EPI)AfAm (>60 ml/min/1.73 sqM) Est GFR (CKD-EPI)NonAf (>60 ml/min/1.73 sqM) Glucose (74-99) mg/dL Plasma Lactic Acid Abhijit 0.9 (0.7-2.0) mmol/L Calcium (8.4-10.2) mg/dL Total Bilirubin (0.2-1.3) mg/dL AST (14-36) U/L ALT (4-34) U/L Alkaline Phosphatase (38-126) U/L Total Protein (6.3-8.2) g/dL Albumin (3.5-5.0) g/dL Amylase (30-110) U/L Lipase (23-300) U/L Urine Color Urine Appearance (Clear) Urine pH (5.0-8.0) Ur Specific [place] (1.001-1.035) Urine Protein (Negative) Urine Glucose (UA) (Negative) Urine Ketones (Negative) Urine Blood (Negative) Urine Nitrite (Negative) Urine Bilirubin (Negative) Urine Urobilinogen (<2.0) mg/dL Ur Leukocyte Esterase (Negative) Urine RBC (0-5) /hpf Urine WBC (0-5) /hpf Ur Squamous Epith Cells (0-4) /hpf Urine Bacteria (None) /hpf Urine Mucus (None) /hpf Urine HCG, Qual Not Detected (Not Detectd) Disposition <Jacqui Macias - Last Filed: 03/02/24 15:56> Is patient prescribed a controlled substance at d/c from ED?: No <Karen Ross - Last Filed: 03/02/24 22:02> Clinical Impression: Appendicitis Disposition: ADMITTED IP TO THIS HOSP Condition: Stable
[2024-03-02 16:41] LABS: Basophils % (A) 0 %; Eosinophils # (A) 0.1 k/uL (0-0.7); Eosinophils % (A) 1 %; HCT 44.5 % (34.0-46.0); Lymphocytes # (A) 1.6 k/uL (1.0-4.8); Lymphocytes % (A) 20 %; MCH 31.6 pg (25.0-35.0); MCHC 33.7 g/dL (31.0-37.0); MCV 93.8 fL (80.0-100.0); Mean Platelet Volume 8.3; Monocytes # (A) 0.5 k/uL (0-1.0); Monocytes % (A) 7 %; Neutrophils # (A) 5.3 k/uL (1.3-7.7); Neutrophils % (A) 70 %; Platelet Count 251 k/uL (150-450); RBC 4.75 m/uL (3.80-5.40); RDW 11.5 % (11.5-15.5); WBC 7.6 k/uL (3.8-10.6)
[2024-03-02 16:46] LABS: Appearance,Urine Cloudy (Clear); Bacteria,Urine Moderate /hpf; Bilirubin,Urine Negative (Negative); Blood,Urine Negative (Negative); Color,Urine Light Yellow; Glucose,Urine (UA) Negative (Negative); Ketones,Urine 1+ (Negative); Leukocyte Esterase,Urine Moderate (Negative); Mucus,Urine Rare /hpf; Nitrite,Urine Positive (Negative); PH, Urine 5.5 (5.0-8.0); Protein,Urine Negative (Negative); RBC,Urine 3 /hpf (0-5); Specific Gravity,Urine 1.022 (1.001-1.035); Squamous Epithelial Cell,Urine 8 /hpf (0-4); Urobilinogen,Urine <2.0 mg/dL (<2.0); WBC,Urine 10 /hpf (0-5)
[2024-03-02 16:50] LABS: ALT 20 U/L (4-34); AST 26 U/L (14-36); African American GFR (CKD) >90 (>60 ml/min/1.73 sqM); Albumin 4.5 g/dL (3.5-5.0); Alkaline Phosphatase 77 U/L (38-126); Amylase 53 U/L (30-110); Anion Gap 13 mmol/L; Blood Urea Nitrogen 15 mg/dL (7-17); Calcium 10.2 mg/dL (8.4-10.2); Carbon Dioxide 22 mmol/L (22-30); Chloride 103 mmol/L (98-107); Glucose 98 mg/dL (74-99); Lipase 78 U/L (23-300); Non-African American GFR(CKD) >90 (>60 ml/min/1.73 sqM); Potassium 4.7 mmol/L (3.5-5.1); Sodium 138 mmol/L (137-145); Total Bilirubin 0.5 mg/dL (0.2-1.3); Total Protein 7.5 g/dL (6.3-8.2)
--- NOTE | 2024-03-02 17:42 | CT ---
EXAMINATION TYPE: CT abdomen pelvis w con DATE OF EXAM: 03/02/2024 5:23 PM COMPARISON: None CLINICAL INDICATION: Female, 33 years old with history of RLQ abd pain; Lower abdominal pain more tow ards right side. TECHNIQUE: Axial CT abdomen pelvis w con;Sagittal and coronal reformats were created on a separate w orkstation. Contrast used:100cc mL of Isovue 300 with IV Contrast, (none if empty) Oral contrast used: without Oral Contrast (none if empty) CT DLP: 1150.2 mGycm, Automated exposure control for dose reduction was used. FINDINGS: LOWER CHEST: Unremarkable ABDOMEN LIVER: Unremarkable GALLBLADDER AND BILE DUCTS: Unremarkable. PANCREAS: Unremarkable. SPLEEN: Unremarkable. ADRENAL GLANDS: Unremarkable. KIDNEYS AND URETERS: No evidence of hydronephrosis or renal calculus. The ureters are unremarkable. PELVIS BLADDER: No evidence for wall thickening or mass given limitations of exam. REPRODUCTIVE: Corpus luteum in the right ovary. ABDOMEN & PELVIS STOMACH AND BOWEL: No evidence of bowel obstruction. Appendix is visualized and situated just posteri or to the uterus and right ovary there is mild fat stranding changes near the appendix. Appendix ludin ures up to 8 mm in thickness PERITONEUM/RETROPERITONEUM: No evidence of pneumoperitoneum or free fluid. VASCULATURE: No evidence of aortic aneurysm. MUSCULOSKELETAL: No acute osseous abnormalities LYMPH NODES: No gross evidence for lymphadenopathy. SOFT TISSUE/ABDOMINAL WALL: Unremarkable IMPRESSION: Mild inflammation changes around a mildly dilated appendix, correlate for for acute uncomplicated cristian endicitis. No other acute process visualized. No obstructive uropathy or renal calculus. [facility], , 03/02/2024 5:40 PM
[2024-03-02] MEDS: ONDANSETRON 4 MG/2 ML VIAL IVP STA (17:48)
[2024-03-02] MEDS: KETOROLAC 15 MG/ML 1 ML VIAL IVP STA (17:50)
[2024-03-02] MEDS: SODIUM CHLORIDE 0.9% 1,000 ML IV ONE (17:59)
[2024-03-02] MEDS ORDERED: NALOXONE 0.4 MG/ML 1 ML VIAL IV PRN (18:07)
[2024-03-02] MEDS: PIPERACILLIN-TAZOBACTAM 3.375 GM in SODIUM CHLORIDE 0.9% 100 ML IVPB STA (18:16)
[2024-03-02] MEDS: SODIUM CHLORIDE 0.9% 1,000 ML IV SCH (18:30)
[2024-03-02] MEDS: HYDROmorphone 1 MG/ML 1 ML SYRINGE IVP PRN (22:05)
[2024-03-03] MEDS: LIDOCAINE 1%-EPI 1:100,000 20 ML VIAL SQ ONE ×3 (06:01→17:22)
[2024-03-03] MEDS: PIPERACILLIN-TAZOBACTAM 3.375 GM in SODIUM CHLORIDE 0.9% 100 ML IVPB SCH (08:07)
[2024-03-03] MEDS: KETOROLAC 15 MG/ML 1 ML VIAL IVP PRN (08:11)
[2024-03-03] MEDS: ONDANSETRON 4 MG/2 ML VIAL IVP PRN (08:12)
--- NOTE | 2024-03-03 10:59 | P.GSHP ---
History of Present Illness H&P Date: 03/03/24 CHIEF COMPLAINT: Abdominal pain HISTORY OF PRESENT ILLNESS: This is a 33-year-old female who presented to the hospital with complaints of right lower quadrant abdominal pain x 3 days. She has been having nausea. She initially went to the urgent care who referred her to the ER. She had a CT scan abdomen and pelvis completed with results reporting mild inflammation changes around a mildly dilated appendix. Correlate for acute uncomplicated appendicitis. Patient denies any prior abdominal andrea geries. Denies any cardiac history. PAST MEDICAL HISTORY: See below PAST SURGICAL HISTORY: See below MEDICATIONS: See below ALLERGIES: See below SOCIAL HISTORY: No illicit drug use. REVIEW OF SYSTEMS: CONSTITUTIONAL: Denies fever or chills. HEENT: Denies blurred vision, vision changes, or eye pain. Denies hemoptysis CARDIOVASCULAR: Denies chest pain or pressure. RESPIRATORY: No shortness of breath. GASTROINTESTINAL: See HPI for pertinent findings HEMATOLOGIC: Denies bleeding disorders. GENITOURINARY: Denies any blood in urine or increased urinary frequency. SKIN: Denies pruitis. Denies rash. PHYSICAL EXAM: VITAL SIGNS: Reviewed GENERAL: Well-developed in no acute distress. HEENT: No sclera icterus. Extraocular movements grossly intact. Moist buccal mucosa. Head is atraumatic, normocephalic. No nasal drainage. ABDOMEN: Soft. Nondistended. Tenderness with palpation to right lower quadrant. No rebound or guarding noted. NEUROLOGIC: Alert and oriented. Cranial nerves II through XII grossly intact. LABORATORY DATA: WBC 7.6 Hgb 15 platelets 251 Sodium 138 potassium 4.7 creatinine 0.76 Lactic acid 0.9 IMAGING: CT scan abdomen pelvis reports mild inflammation changes around mildly dilated appendix correlate for uncomplicated acute appendicitis. ASSESSMENT: 1. Acute appendicitis PLAN: -Patient scheduled for laparoscopic appendectomy today with Dr. Pascual -Keep patient n.p.o. -Continue IV antibiotics -Continue IV fluids -Continue pain management and antiemetics Physician Grind Operator note has been reviewed by physician. Signing provider agrees with the documented findings, assessment, and plan of care. Attestation Patient seen and examined at bedside. Presented with chief complaint of abdominal pain x 2 days. The pain is mainly in the right lower quadrant. On workup, patient did have CT of the abdomen pelvis concerning for acute appendicitis. Patient was started on IV antibiotics. She is NPO. Continue IV fluids. Plan for laparoscopic appendectomy. Further recommendations after procedure is completed. Cristal Pascual DO Past Medical History Past Medical History: No Reported History, Thyroid Disorder History of Any Multi-Drug Resistant Organisms: ESBL Date of last positivie culture/infection: 02/04/2014 MDRO Source:: Urine Past Surgical History: No Surgical Hx Reported Past Anesthesia/Blood Transfusion Reactions: No Reported Reaction Past Psychological History: Anxiety, Bipolar, Depression Smoking Status: Vaper Past Alcohol Use History: Occasional Past Drug Use History: Marijuana - Past Family History Mother Family Medical History: No Reported History Medications and Allergies Home Medications Medication Instructions Recorded Confirmed Type No Known Home Medications 03/02/24 03/02/24 History Allergies Allergy/AdvReac Type Severity Reaction Status Date / Time No Known Allergies Allergy Verified 03/02/24 18:08 Surgical - Exam Osteopathic Statement: *. No significant issues noted on an osteopathic structural exam other than those noted in the History and Physical/Consult. Vital Signs Temp Pulse Resp BP Pulse Ox 98.7 F 91 21 106/70 100 03/02/24 15:12 03/02/24 15:12 03/02/24 15:12 03/02/24 15:12 03/02/24 15:12 Results - Labs 03/02/24 16:31 03/02/24 16:31 Abnormal Lab Results - Last 24 Hours (Table) 03/02/24 Range/Units 16:31 Urine Appearance Cloudy H (Clear) Urine Ketones 1+ H (Negative) Urine Nitrite Positive H (Negative) Ur Leukocyte Esterase Moderate H (Negative) Urine WBC 10 H (0-5) /hpf Ur Squamous Epith Cells 8 H (0-4) /hpf Urine Bacteria Moderate H (None) /hpf Urine Mucus Rare H (None) /hpf Diabetes panel 03/02/24 Range/Units 16:31 Sodium 138 (137-145) mmol/L Potassium 4.7 (3.5-5.1) mmol/L Chloride 103 (98-107) mmol/L Carbon Dioxide 22 (22-30) mmol/L BUN 15 (7-17) mg/dL Creatinine 0.76 (0.52-1.04) mg/dL Glucose 98 (74-99) mg/dL Calcium 10.2 (8.4-10.2) mg/dL AST 26 (14-36) U/L ALT 20 (4-34) U/L Alkaline Phosphatase 77 (38-126) U/L Total Protein 7.5 (6.3-8.2) g/dL Albumin 4.5 (3.5-5.0) g/dL Calcium panel 03/02/24 Range/Units 16:31 Calcium 10.2 (8.4-10.2) mg/dL Albumin 4.5 (3.5-5.0) g/dL Pituitary panel 03/02/24 Range/Units 16:31 Sodium 138 (137-145) mmol/L Potassium 4.7 (3.5-5.1) mmol/L Chloride 103 (98-107) mmol/L Carbon Dioxide 22 (22-30) mmol/L BUN 15 (7-17) mg/dL Creatinine 0.76 (0.52-1.04) mg/dL Glucose 98 (74-99) mg/dL Calcium 10.2 (8.4-10.2) mg/dL Adrenal panel 03/02/24 Range/Units 16:31 Sodium 138 (137-145) mmol/L Potassium 4.7 (3.5-5.1) mmol/L Chloride 103 (98-107) mmol/L Carbon Dioxide 22 (22-30) mmol/L BUN 15 (7-17) mg/dL Creatinine 0.76 (0.52-1.04) mg/dL Glucose 98 (74-99) mg/dL Calcium 10.2 (8.4-10.2) mg/dL Total Bilirubin 0.5 (0.2-1.3) mg/dL AST 26 (14-36) U/L ALT 20 (4-34) U/L Alkaline Phosphatase 77 (38-126) U/L Total Protein 7.5 (6.3-8.2) g/dL Albumin 4.5 (3.5-5.0) g/dL
[2024-03-03] MEDS: IV FLUID CONTINUATION 1,000 ML IV ONE (16:19)
[2024-03-03] MEDS: DEXAMETHASONE SOD PHOSPHATE 4 MG/ML 1 ML VIAL IVP STA (16:24)
[2024-03-03] MEDS: SCOPOLAMINE 1 MG/72 HR PATCH TRANSDERM STA (16:24)
[2024-03-03] MEDS: HEPARIN SODIUM,PORCINE 5,000 UNIT/ML 1 ML VIAL SQ STA (16:36)
[2024-03-03] MEDS ORDERED: LIDOCAINE 1% INJ 10MG/ML (20 ML MDV) ONE (16:50)
[2024-03-03] MEDS ORDERED: SUCCINYLCHOLINE CHLORIDE 200 MG/10 ML VIAL IV ONE (16:50)
[2024-03-03] MEDS ORDERED: MIDAZOLAM 2 MG/2 ML VIAL ONE (16:50)
[2024-03-03] MEDS ORDERED: PROPOFOL 10 MG/ML 20 ML VIAL IV ONE (16:50)
[2024-03-03] MEDS ORDERED: GLYCOPYRROLATE 0.2 MG/ML 2 ML VIAL ONE (16:50)
[2024-03-03] MEDS ORDERED: NEOSTIGMINE 1 MG/ML 10 ML VIAL ONE (16:50)
[2024-03-03] MEDS ORDERED: ROCURONIUM 10 MG/ML (5 ML VIAL) IV ONE (16:50)
[2024-03-03] MEDS ORDERED: fentaNYL (PF) 50 MCG/ML 2 ML AMP ONE (16:50)
--- NOTE | 2024-03-03 17:48 | P.OP ---
Date of Procedure: 03/03/24 Preoperative Diagnosis: Acute appendicitis Postoperative Diagnosis: Acute appendicitis Procedure(s) Performed: Laparoscopic appendectomy Anesthesia: SONIA Surgeon: Cristal Pascual Pathology: other (Appendix) Condition: stable Disposition: floor Indications for Procedure: 33-year-old female presented to the emergency department with complaint of 2 days of abdominal pain in the right lower quadrant. On workup she is found to have concern for acute appendicitis based on CT. Patient was started on IV an tibiotics with plan for laparoscopic appendectomy. Risks, benefits and alternatives to the procedure were presented to the patient. All questions answered prior to attending the operating suite. Operative Findings: Dilated appendix Description of Procedure: Patient was brought to the operative suite and placed in supine position on the operative table. Sedation was provided by anesthesia and the patient underwent endotracheal intubation. She was then prepped and draped in regular sterile fashion. Infraumbilical incision was made and dissection was carried to the fascia. The fascia was incised and a 12 mm trocar was placed. Pneumoperitoneum was achieved. 2 additional 5 mm ports were placed, 1 in the suprapubic region and 1 in the left upper quadrant. The patient was then positioned appropriately and the cecum was identified. The teniae were followed to the appendix and the index was clearly visualized and noted to be dilated. It was grasped and a window was created between the appendix and the mesoappendix and LigaSure was used to divide the two. Hemostasis was noted to be maintained. A plate was then fired across the base of the appendix and the appendix was placed in an Endo Catch bag and removed from the abdomen. On evaluation of the staple line, hemostasis was noted to be maintained. No significant fluid was noted in the pelvis. The infraumbilical fascial incision site was closed under direct visualization using 0 Vicryl suture and Amadeo-Puneet device. Pneumoperitoneum was then released and all ports removed from the abdomen. All incision sites were closed with 4-0 Vicryl subcuticular suture. Sterile dressing was applied. Patient was awakened in the operating suite and taken to postanesthesia care unit in stable condition.
[2024-03-03] MEDS: HYDROmorphone 0.5 MG/0.5 ML SYRINGE IVP STA (17:56)
[2024-03-04] MEDS: HYDROcodone/APAP 5-325MG 1 EACH TAB PO PRN (12:53)
[2024-03-04] MEDS: SODIUM CHLORIDE 0.9% 1,000 ML IV ONE (14:39)
[2024-03-04 14:55] LABS: Basophils % (A) 0 %; Eosinophils % (A) 1 %; HCT 34.1 % (34.0-46.0); Lymphocytes # (A) 2.3 k/uL (1.0-4.8); Lymphocytes % (A) 28 %; MCH 31.8 pg (25.0-35.0); MCHC 33.6 g/dL (31.0-37.0); MCV 94.6 fL (80.0-100.0); Monocytes # (A) 0.7 k/uL (0-1.0); Monocytes % (A) 9 %; Neutrophils # (A) 4.9 k/uL (1.3-7.7); Neutrophils % (A) 61 %; Platelet Count 210 k/uL (150-450); RDW 11.3 % (11.5-15.5); WBC 8.1 k/uL (3.8-10.6)
[2024-03-04 15:07] LABS: HGB 11.4 gm/dL (11.4-16.0)
[2024-03-04 15:12] LABS: African American GFR (CKD) 89 (>60 ml/min/1.73 sqM); Anion Gap 3 mmol/L; Blood Urea Nitrogen 13 mg/dL (7-17); Calcium 8.9 mg/dL (8.4-10.2); Carbon Dioxide 29 mmol/L (22-30); Chloride 102 mmol/L (98-107); Glucose 101 mg/dL (74-99); Non-African American GFR(CKD) 77 (>60 ml/min/1.73 sqM); Potassium 4.3 mmol/L (3.5-5.1); Sodium 134 mmol/L (137-145)
--- NOTE | 2024-03-04 15:55 | P.PN ---
Subjective Progress Note Date: 03/04/24 SURGICAL PROGRESS NOTE CHIEF COMPLAINT: Appendicitis HISTORY OF PRESENT ILLNESS: Patient postop day #1 status post laparoscopic appendectomy. Patient initially seen and examined this morning. Complaining of some pain at the abdominal incision sites especially with movement. Her diet was advanced. [place] added for pain regimen. Later in the morning nursing staff called patient had been having some vision changes likely related to the scopolamine patch. Scopolamine patch was removed. The skin in that area was washed. Patient's hands were washed. Patient continues to have vision changes. Patient denies any numbness or tingling in her extremities. Denies any slurred speech. Nursing staff notified me this afternoon that patient is now having hypotension. Blood pressure was 80/40. Heart rate was 73. Patient denies any dizziness or lightheadedness. She reports feeling very dry and thirsty. She feels fatigued. Afebrile. WBC is 8.1 Hgb 15 down to 11.4 platelets 210 sodium 134 potassium is 4.3 creatinine 0.96 PHYSICAL EXAM: VITAL SIGNS: Reviewed. GENERAL: Well-developed in no acute distress. HEENT: No sclera icterus. Extraocular movements grossly intact. Moist buccal mucosa. Head is atraumatic, normocephalic. ABDOMEN: Soft. Nondistended. Tender at incision sites. Incision sites are clean dry and intact. No rebound or guarding noted. NEUROLOGIC: Alert and oriented. Cranial nerves II through XII grossly intact. Patient able to move all 4 extremities. ASSESSMENT: 1. Acute appendicitis status post laparoscopic appendectomy 2. Blurred vision likely due to scopolamine patch 3. Hypotension possibly due to dehydration and may be due to the scopolamine patch PLAN: -Scopolamine patch discontinued -1 L IV fluid bolus ordered for hypotension -Place maintenance fluids at 75 mL/h -Abdominal binder and ice packs as needed to abdomen -Will observe patient tonight -Repeat labs in a.m. -Notify nursing staff to call surgeon if BP does not respond to the IV fluids Physician Front Office Assistant note has been reviewed by physician. Signing provider agrees with the documented findings, assessment, and plan of care. Attestation Patient seen and examined at bedside on 03/04/2024. Presented with chief complaint of abdominal pain and is postoperative day #1, laparoscopic appendectomy. Patient was doing well in the a.m., however in the afternoon patient noted to have blurry vision and hypotension. This is likely secondary to scopolamine patch and this was removed. Patient did not respond to 1 L fluid bolus so CTA of the abdomen and pelvis was performed with no obvious finding of bleeding. Blood pressure did improve afterwards. Cristal Pascual DO Objective - Vital Signs Vital signs: Vital Signs Temp 98.0 F 03/04/24 14:12 Pulse 73 03/04/24 14:12 Resp 17 03/04/24 14:12 BP 83/49 03/04/24 14:12 Pulse Ox 97 03/04/24 14:12 FiO2 Intake & Output 03/03/24 03/04/24 03/04/24 18:59 06:59 18:59 Intake Total 300 540 Output Total 3.2 Balance 296.8 540 Intake: IV 300 Oral 540 Output: Estimated Blood Loss 3.2 Other: Voiding Method Toilet Toilet # Voids 1 2 3 - Labs CBC & Chem 7: 03/05/24 03:19 03/05/24 03:19 Labs: Abnormal Lab Results - Last 24 Hours (Table) 03/04/24 03/04/24 Range/Units 14:33 14:33 RBC 3.60 L (3.80-5.40) m/uL RDW 11.3 L (11.5-15.5) % Sodium 134 L (137-145) mmol/L Glucose 101 H (74-99) mg/dL Microbiology - Last 24 Hours (Table) 03/02/24 18:17 Blood Culture - Preliminary Blood
[2024-03-04] MEDS: SODIUM CHLORIDE 0.9% 1,000 ML IV SCH (16:57)
--- NOTE | 2024-03-04 18:21 | CT ---
EXAMINATION TYPE: CT angio abdomen pelvis DATE OF EXAM: 03/04/2024 5:44 PM COMPARISON: 03/02/2024 CLINICAL INDICATION: Female, 33 years old with history of decreased bp, status post lap appy; PHH, AB D PAIN/DROP IN BP TECHNIQUE: CT noncontrast abdomen pelvis followed by CT angiogram abdomen and pelvis. Multiple thin slice sub-millimeter images were obtained before and after administration of contrast. 3-D reconstructed images and maximum intensity projection images were obtained. CT angio abdomen p eul[place] CT Contrast: Contrast used:100ML mL of Isovue 370 with IV Contrast, Oral contrast used: without Oral Contrast None CT DLP: 1596.8 mGycm, Automated exposure control for dose reduction was used. FINDINGS: CTA Abdomen and pelvis: The abdominal aorta does not demonstrate aneurysmal dilatation. Atherosclero tic plaquing is identified within the abdominal aorta. The origins of the superior mesenteric artery , renal arteries, inferior mesenteric artery, and celiac axis are patent. The iliac vessels are norm al in morphology LOWER CHEST: No evidence of focal consolidation, pneumothorax or pleural effusion. LIVER: Unremarkable GALLBLADDER AND BILE DUCTS: Unremarkable. PANCREAS: Unremarkable. SPLEEN: Unremarkable. ADRENAL GLANDS: Unremarkable. KIDNEYS AND URETERS: No evidence of hydronephrosis or renal calculus. The ureters are unremarkable. PELVIS BLADDER: Unremarkable REPRODUCTIVE: Gas in chest and larger hemorrhages arcuate or septate no file G2 the uterine fundus. T he fibroid suspected to be present in the fundus. ABDOMEN & PELVIS STOMACH AND BOWEL: No evidence of bowel obstruction. Postappendectomy changes involving the cecum. PERITONEUM: Scattered pneumoperitoneum compatible with recent surgery. No free fluid or organizing fl uid collection. No evidence for hematoma. VASCULATURE: Arterial phase imaging demonstrates no evidence for acute arterial contrast extravasatio n. MUSCULOSKELETAL: No acute osseous abnormalities LYMPH NODES: No gross evidence for lymphadenopathy. SOFT TISSUE/ABDOMINAL WALL: Unremarkable IMPRESSION: 1. Scattered pneumoperitoneum compatible with recent surgery. No free fluid or organizing fluid chris ection. No evidence for hematoma. 2. No evidence for acute abdominal process to explain patient's drop in blood pressure. [facility], , 03/04/2024 6:19 PM
[2024-03-05 04:13] LABS: HCT 32.4 % (34.0-46.0); HGB 11.1 gm/dL (11.4-16.0); MCHC 34.5 g/dL (31.0-37.0); MCV 95.9 fL (80.0-100.0); Mean Platelet Volume 8.8; Platelet Count 162 k/uL (150-450); RBC 3.37 m/uL (3.80-5.40); RDW 11.6 % (11.5-15.5); WBC 5.9 k/uL (3.8-10.6)
[2024-03-05 04:43] LABS: African American GFR (CKD) >90 (>60 ml/min/1.73 sqM); Anion Gap 3 mmol/L; Blood Urea Nitrogen 11 mg/dL (7-17); Calcium 8.6 mg/dL (8.4-10.2); Carbon Dioxide 25 mmol/L (22-30); Chloride 107 mmol/L (98-107); Glucose 88 mg/dL (74-99); Non-African American GFR(CKD) 79 (>60 ml/min/1.73 sqM); Potassium 4.3 mmol/L (3.5-5.1); Sodium 135 mmol/L (137-145)
[2024-03-05] MEDS: SODIUM CHLORIDE 0.9% 500 ML 500 ML IV ONE (11:17)
--- NOTE | 2024-03-05 11:45 | P.CRDCN ---
History of Present Illness History of present illness: HISTORY OF PRESENT ILLNESS: This is a 33-year-old female with a past medical history significant for obesity and nicotine dependence in the form of vaping. Patient does not follow with ca rdiologist. We have been asked to see the patient in consultation for hypotension. Patient examined at the bedside. Patient presented to the hospital with a chief complaint of abdominal pain. She reported having nausea but no vomiting. She was found to have acute appendicitis and underwent laparoscopic appendectomy on 03/03/2024. Patient was hypotensive yesterday and did receive 1 L IV fluid bolus. Patient was hypotensive overnight with a systolic in the 80s90s. Blood pressure this morning 93/62. The patient states that she feels tired this morning. She denies any chest pain or pressure. She denies any shortness of breath. She denies any dizziness or lightheadedness. She has been up ambulating to the bathroom without any issues. The patient denies any issues this previously with her blood pressure. She states her blood pressure usually runs between 618710 systolic. She denies any known cardiac history. The patient currently has IV fluids running at 125 cc an hour. She is tolerating oral intake. She does not take any prescription medications on an outpatient basis. She does report that she vapes on a daily basis. REVIEW OF SYSTEMS: At the time of my exam: CONSTITUTIONAL: Denies fever or chills. HEENT: Denies blurred vision, vision changes, or eye pain. Denies hemoptysis CARDIOVASCULAR: Denies chest pain. Denies orthopnea. Denies PND. Denies palpitations RESPIRATORY: Denies shortness of breath. GASTROINTESTINAL: Denies abdominal pain. Denies nausea or vomiting. HEMATOLOGIC: Denies bleeding disorders. GENITOURINARY: Denies any blood in urine. SKIN: Denies pruitis. Denies rash. PHYSICAL EXAM: VITAL SIGNS: Reviewed. GENERAL: Well-developed in no acute distress. HEENT: Head is normocephalic. Pupils are equal, round. Sclerae anicteric. Mucous membranes of the mouth are moist. Neck supple. No JVD or thyromegaly LUNGS: Respirations even and unlabored. Lungs essentially clear to auscultation bilaterally. HEART: Regular rate and rhythm. S1 and S2 heard. ABDOMEN: Soft. Nondistended. Mild surgical tenderness of right lower quadrant. EXTREMITIES: Normal range of motion. No clubbing or cyanosis. Peripheral pulses intact. No lower extremity edema NEUROLOGIC: Awake and alert. Oriented x 3. ASSESSMENT: Acute appendicitis, status post laparoscopic appendectomy Postoperative hypotension Nicotine dependence in the form of vaping Obesity: BMI 33.3 PLAN: Obtain 2D echo to assess cardiac structure and function Give 500 cc normal saline bolus Continue to monitor blood pressure Smoking cessation encouraged Further recommendations pending patient course Nurse practitioner note has been reviewed by physician. Signing provider agrees with the documented findings, assessment, and plan of care documented by CHAINER as a scribe. Past Medical History Past Medical History: No Reported History, Thyroid Disorder History of Any Multi-Drug Resistant Organisms: ESBL Date of last positivie culture/infection: 02/04/2014 MDRO Source:: Urine Past Surgical History: No Surgical Hx Reported Past Anesthesia/Blood Transfusion Reactions: No Reported Reaction Past Psychological History: Anxiety, Bipolar, Depression Smoking Status: Vaper Past Alcohol Use History: Occasional Past Drug Use History: Marijuana - Past Family History Mother Family Medical History: No Reported History Medications and Allergies Home Medications Medication Instructions Recorded Confirmed Type No Known Home Medications 03/02/24 03/02/24 History Allergies Allergy/AdvReac Type Severity Reaction Status Date / Time No Known Allergies Allergy Verified 03/03/24 16:31 Physical Exam Vitals: Vital Signs Temp Pulse Resp BP Pulse Ox 03/05/24 10:13 62 96/62 03/05/24 06:41 98.7 F 54 L 17 89/57 96 03/05/24 03:26 90/56 03/05/24 00:41 98.3 F 60 18 82/51 97 03/04/24 19:00 98.5 F 69 18 95/59 99 03/04/24 18:05 65 96/58 98 03/04/24 16:10 59 L 78/48 98 03/04/24 14:12 98.0 F 73 17 83/49 97 Intake and Output 03/04/24 03/05/24 03/05/24 22:59 06:59 14:59 Intake Total 540 Balance 540 Intake: Oral 540 Other: Voiding Method Toilet # Voids 4 3 Results 03/05/24 03:19 03/05/24 03:19 CBC 03/04/24 03/05/24 Range/Units 14:33 03:19 WBC 8.1 5.9 (3.8-10.6) k/uL RBC 3.60 L 3.37 L (3.80-5.40) m/uL Hgb 11.4 D 11.1 L (11.4-16.0) gm/dL Hct 34.1 32.4 L (34.0-46.0) % Plt Count 210 162 (150-450) k/uL Comprehensive Metabolic Panel 03/04/24 03/05/24 Range/Units 14:33 03:19 Sodium 134 L 135 L (137-145) mmol/L Potassium 4.3 4.3 (3.5-5.1) mmol/L Chloride 102 107 (98-107) mmol/L Carbon Dioxide 29 25 (22-30) mmol/L BUN 13 11 (7-17) mg/dL Creatinine 0.96 0.94 (0.52-1.04) mg/dL Glucose 101 H 88 (74-99) mg/dL Calcium 8.9 8.6 (8.4-10.2) mg/dL Current Medications Generic Name Dose Route Start Last Admin Trade Name Freq PRN Reason Stop Dose Admin Hydrocodone Bitart/Acetaminophen 1 each 03/04/24 09:06 03/04/24 20:00 Hydrocodone/Apap 5-325mg 1 Each Tab PO 1 each Q4HR PRN Administration Pain Piperacillin Sod/Tazobactam 100 mls @ 25 mls/hr 03/03/24 08:00 03/05/24 07:50 Sod 3.375 gm/ Sodium Chloride IVPB 25 mls/hr Q8HR RADHA Administration Protocol Sodium Chloride 1,000 mls @ 125 mls/hr 03/05/24 18:15 Saline 0.9% IV .Q8H [facility] Ketorolac Tromethamine 15 mg 03/02/24 18:07 03/05/24 07:51 Ketorolac 15 Mg/Ml 1 Ml Vial IVP 03/05/24 18:08 15 mg Q6HR PRN Administration Moderate Pain (Scale 4 to 6) Naloxone HCl 0.2 mg 03/02/24 18:07 Naloxone 0.4 Mg/Ml 1 Ml Vial IV Q2M PRN Opioid Reversal Ondansetron HCl 4 mg 03/02/24 18:07 03/03/24 16:23 Ondansetron 4 Mg/2 Ml Vial IVP 4 mg Q8HR PRN Administration Nausea And Vomiting Intake and Output 03/04/24 03/05/24 03/05/24 22:59 06:59 14:59 Intake Total 540 Balance 540 Intake: Oral 540 Other: Voiding Method Toilet # Voids 4 3 03/05/24 03:19 03/05/24 03:19
--- NOTE | 2024-03-05 16:12 | P.PN ---
Subjective Progress Note Date: 03/05/24 SURGICAL PROGRESS NOTE CHIEF COMPLAINT: Appendicitis HISTORY OF PRESENT ILLNESS: Patient postop day #2 status post laparoscopic appendectomy. Patient is feeling better today. Her pain is improving. She denies any nausea or vomiting. She is having flatus. She did tolerate diet. She has been hypotensive. She required fluid bolus yesterday. Patient also had a CT scan with no evidence of hematoma or fluid collection. Hemoglobin is stable at 11.1. Patient was also reporting blurry vision still. As the day has progressed her vision is improving PHYSICAL EXAM: VITAL SIGNS: Reviewed. GENERAL: Well-developed in no acute distress. HEENT: No sclera icterus. Extraocular movements grossly intact. Moist buccal mucosa. Head is atraumatic, normocephalic. ABDOMEN: Soft. Nondistended. Tender at incision sites. Incision sites are clean dry and intact. Mild bruising at suprapubic incision site. No rebound or guarding noted. NEUROLOGIC: Alert and oriented. Cranial nerves II through XII grossly intact. Patient able to move all 4 extremities. ASSESSMENT: 1. Acute appendicitis status post laparoscopic appendectomy 2. Blurred vision likely due to scopolamine patch 3. Hypotension possibly due to dehydration and may be due to the scopolamine patch PLAN: -Cardiology consulted due to hypotension. They have ordered another fluid bolus and an echo. Blood pressure is now showing improvement. Last BP 108/71 -Scopolamine patch discontinued yesterday -Continue IV fluids Physician Chief Clinical Officer note has been reviewed by physician. Signing provider agrees with the documented findings, assessment, and plan of care. Attestation Patient seen and examined at bedside. Postoperative day #2 status post laparoscopic appendectomy. Overall, appears to be doing well, however continued hypotension. At this point, likely secondary to scopolamine patch. Blurry vision also noted but patient states has resolved over the day. Her blood pressures over the second portion of the day have started to increase. Cardiology was consulted to evaluate the hypotension and did recommend echo. E cho to be performed and patient to be discharged once stable. Cristal Pascual DO Objective - Vital Signs Vital signs: Vital Signs Temp 98.7 F 03/05/24 06:41 Pulse 75 03/05/24 14:06 Resp 18 03/05/24 14:06 BP 108/71 03/05/24 14:06 Pulse Ox 96 03/05/24 14:06 FiO2 Intake & Output 03/04/24 03/05/24 03/05/24 18:59 06:59 18:59 Intake Total 540 Balance 540 Intake: Oral 540 Other: Voiding Method Toilet # Voids 4 3 - Labs CBC & Chem 7: 03/05/24 03:19 03/05/24 03:19 Labs: Abnormal Lab Results - Last 24 Hours (Table) 03/05/24 03/05/24 Range/Units 03:19 03:19 RBC 3.37 L (3.80-5.40) m/uL Hgb 11.1 L (11.4-16.0) gm/dL Hct 32.4 L (34.0-46.0) % Sodium 135 L (137-145) mmol/L Microbiology - Last 24 Hours (Table) 03/02/24 18:17 Blood Culture - Preliminary Blood
[2024-03-05] MEDS: SODIUM CHLORIDE 0.9% 1,000 ML IV SCH (18:17)
[2024-03-06 07:43] VITALS: TEMP 98.3
--- NOTE | 2024-03-06 10:59 | P.PN ---
Subjective HISTORY OF PRESENT ILLNESS: This is a 33-year-old female with a past medical history significant for obesity and nicotine dependence in the form of vaping. Patient does not follow with senior electrical controls engineer. We have been asked to see the patient in consultation for hypotension. Patient examined at the bedside. Patient presented to the hospital with a chief complaint of abdominal pain. She reported having nausea but no vomiting. She was found to have acute appendicitis and underwent laparoscopic appendectomy on 03/03/2024. Patient was hypotensive yesterday and did receive 1 L IV fluid bolus. Patient was hypotensive overnight with a systolic in the 80s90s. Blood pressure this morning 93/62. The patient states that she feels tired this morning. She denies any chest pain or pressure. She denies any shortness of breath. She denies any dizziness or lightheadedness. She has been up ambulating to the bathroom without any issues. The patient denies any issues this previously with her blood pressure. She states her blood pressure usually runs between 061816 systolic. She denies any known cardiac history. The patient currently has IV fluids running at 125 cc an hour. She is tolerating oral intake. She does not take any prescription medications on an outpatient basis. She does report that she vapes on a daily basis. 03/06/2023 Patient examined this morning the bedside. Patient currently denies chest pain or pressure. She denies shortness of breath. She continues to report surgical pain. Denies any dizziness or lightheadedness. Blood pressure stable. 2D echo remains pending. PHYSICAL EXAM: VITAL SIGNS: Reviewed. GENERAL: Well-developed in no acute distress. HEENT: Head is normocephalic. Pupils are equal, round. Sclerae anicteric. Mucous membranes of the mouth are moist. Neck supple. No JVD or thyromegaly LUNGS: Respirations even and unlabored. Lungs essentially clear to auscultation bilaterally. HEART: Regular rate and rhythm. S1 and S2 heard. ABDOMEN: Soft. Nondistended. Mild surgical tenderness of right lower quadrant. EXTREMITIES: Normal range of motion. No clubbing or cyanosis. Peripheral pulses intact. No lower extremity edema NEUROLOGIC: Awake and alert. Oriented x 3. ASSESSMENT: Acute appendicitis, status post laparoscopic appendectomy Postoperative hypotension Nicotine dependence in the form of vaping Obesity: BMI 33.3 PLAN: 2D echo ordered. Await results. Continue to monitor blood pressure Smoking cessation encouraged Patient may be discharged home today from a cardiac standpoint pending echo results Nurse practitioner note has been reviewed by physician. Signing provider agrees with the documented findings, assessment, and plan of care documented by BUS VAN DRIVER as a scribe. Objective - Vital Signs Vital signs: Vital Signs Temp 98.3 F 03/06/24 07:24 Pulse 62 03/06/24 07:24 Resp 19 03/06/24 07:24 BP 102/68 03/06/24 07:24 Pulse Ox 98 03/06/24 07:24 FiO2 Intake & Output 03/05/24 03/06/24 03/06/24 18:59 06:59 18:59 Other: Voiding Method Toilet # Voids 4 - Labs CBC & Chem 7: 03/05/24 03:19 03/05/24 03:19 Labs: Microbiology - Last 24 Hours (Table) 03/02/24 18:17 Blood Culture - Preliminary Blood
[2024-03-06 13:28] VITALS: BP 114/49; PULSE 64; RESP 18
--- NOTE | 2024-03-06 13:44 | CA ---
Transthoracic Echo Report Name: Belén Jeronimo Age: 33 Gender: F : 1990 Exam Date: 03/06/2024 08:43 Exam Location: [place] [facility] Ht (in): 65 Wt (lb): 200 Ordering Physician: Rosalia Elias Attending/Referring Phys: [id number], Curt Firebreak Cutter Frances Guy RDCS Procedure CPT: Indications: LV function, hypotension Cardiac Hx: Technical Quality: Good Contrast 1: Total Dose (mL): Contrast 2: Total Dose (mL): MEASUREMENTS (Male / Female) Normal Values 2D ECHO LV Diastolic Diameter PLAX 4.4 cm 4.2 - 5.9 / 3.9 - 5.3 cm LV Systolic Diameter PLAX 2.7 cm IVS Diastolic Thickness 1.0 cm 0.6 - 1.0 / 0.6 - 0.9 cm LVPW Diastolic Thickness 1.0 cm 0.6 - 1.0 / 0.6 - 0.9 cm LV Relative Wall Thickness 0.5 RV Internal Dim ED PLAX 2.7 cm LA Systolic Diameter LX 3.9 cm 3.0 - 4.0 / 2.7 - 3.8 cm LV Diastolic Volume MOD BP 84.9 cm??? 67 - 155 / 56 - 104 cm??? LV Systolic Volume MOD BP 29.4 cm??? 22 - 58 / 19 - 49 cm??? LV Ejection Fraction MOD BP 65.4 % >= 55 % LV Cardiac Index MOD BP 1766.5 cm???/min???m??? LV Diastolic Volume MOD 4C 81.1 cm??? LV Systolic Volume MOD 4C 30.2 cm??? LV Ejection Fraction MOD 4C 62.8 % LV Cardiac Index MOD 4C 1621.5 cm???/min???m??? LV Diastolic Length 4C 7.4 cm LV Systolic Length 4C 5.4 cm LV Diastolic Volume MOD 2C 87.6 cm??? LV Systolic Volume MOD 2C 27.1 cm??? LV Ejection Fraction MOD 2C 69.1 % LV Cardiac Index MOD 2C 1925.9 cm???/min???m??? LV Diastolic Length 2C 7.6 cm LV Systolic Length 2C 5.8 cm LA Volume 66.2 cm??? 18 - 58 / 22 - 52 cm??? LA Volume Index 31.9 cm???/m??? 16 - 28 cm???/m??? M-MODE Aortic Root Diameter MM 2.4 cm LA Systolic Diameter MM 3.3 cm LA Ao Ratio MM 1.4 AV Cusp Separation MM 1.8 cm DOPPLER MV Area PHT 2.3 cm??? Mitral E Point Velocity 84.2 cm/s Mitral A Point Velocity 49.2 cm/s Mitral E to A Ratio 1.7 MV Deceleration Time 326.2 ms TR Peak Velocity 245.0 cm/s TR Peak Gradient 24.0 mmHg Right Ventricular Systolic Press 27.4 mmHg FINDINGS Left Ventricle Left ventricular ejection fraction is estimated at 55-60 %. Normal left ventricular systolic function with no obvious regional wall motion abnormalities. Left ventricular cavity size normal. Left ventricular wall thickness normal. Right Ventricle Normal right ventricular size and function. Right ventricular systolic pressure within normal limits. Right Atrium Normal right atrial size. Left Atrium Mildly increased left atrial diameter. Mildly increased left atrial volume. Mitral Valve Structurally normal mitral valve. Mild mitral regurgitation. No mitral stenosis. Aortic Valve Trileaflet aortic valve. No aortic valve stenosis or regurgitation. Tricuspid Valve Structurally normal tricuspid valve. Mild tricuspid regurgitation. No tricuspid stenosis. Pulmonic Valve Structurally normal pulmonic valve. No pulmonic regurgitation. No pulmonic stenosis. Pericardium No pericardial or pleural effusion. Aorta Normal size aortic root and proximal ascending aorta. CONCLUSIONS 1. Normal left ventricular size and systolic function 2. Mild mitral and tricuspid regurgitation Previewed by: Dr. Jennifer Salgado MD (Electronically Signed) Final Date: 06 March 2024 13:43
--- NOTE | 2024-03-06 14:01 | P.DS ---
Providers Date of admission: 03/02/24 17:48 Expected date of discharge: 03/06/24 Attending physician: Cristal Pascual DO Consults: 03/05/24 09:43 Consult Physician Routine Consulting Provider: Jennifer Salgado Consult Reason/Comments: Hypotension Do you want consulting provider notified?: Yes Primary care physician: Kristen Falk Hospital Course: Discharge diagnosis 1. Acute appendicitis status post laparoscopic appendectomy 2. Blurred vision likely due to scopolamine patch. Resolved 3. Hypotension possibly due to dehydration and may be due to the scopolamine patch. Resolved Hospital course This is a 33-year-old female presented the hospital with right lower quadrant abdominal pain x [address] scan abdomen and pelvis completed with results reporting mild inflammation changes around a mildly dilated appendix. Correlate for acute uncomplicated appendicitis. Patient is status post laparoscopic appendectomy. Patient did have blurred vision and hypotension after surgery. This was likely contributed to the scopolamine patch. Scopolamine patch was discontinued. Patient did receive IV fluid boluses. And had increase in her maintenance IV fluids. Blood pressures have improved. Her blurred vision has resolved. She was seen by cardiology service and they completed an echo and have cleared her for discharge. Patient did have a CT scan abdomen after surgery that showed no evidence of fluid collection or hematoma. No acute abdominal process to explain patient's drop in blood pressure. Patient is tolerating diet. Her pain is controlled. She is having bowel movements and flatus. She is afebrile. She has been up and ambulating. Incision sites are clean dry and intact. She is stable for discharge. Physician Calender Wind Up Tender note has been reviewed by physician. Signing provider agrees with the documented findings, assessment, and plan of care. Patient Condition at Discharge: Stable Plan - Discharge Summary Discharge Rx Participant: No New Discharge Prescriptions: New HYDROcodone/APAP 5-325MG [[place] 5-325] 1 tab PO Q6HR PRN 3 Days #12 tab PRN Reason: Pain Discharge Medication List HYDROcodone/APAP 5-325MG [[place] 5-325] 1 tab PO Q6HR PRN 3 Days #12 tab 03/06/24 [Rx] Follow up Appointment(s)/Referral(s): Kristen Falk DO [Primary Care Provider] - 1-2 days Cristal Pascual DO [Doctor of Osteopathic Medicine] - 1 Week Activity/Diet/Wound Care/Special Instructions: No driving while taking [place] No lifting over 10 pounds You may shower. No soaking or tub baths for 2 weeks Very light activity until you are reevaluated at your follow up appointment with your surgeon Discharge Disposition: HOME SELF-CARE
--- NOTE | 2024-03-10 10:06 | CDI ---
Documentation Clarification Form Date: 03/10/2024 09:27:26 AM From: Irais Escalona Phone: Admit Date: 03/02/2024 05:48:00 PM Patient Name: Belén Jeronimo Visit Number: [id number] Discharge Date: 03/06/2024 03:09:00 PM ATTENTION: The Clinical Documentation Specialists (CDI) and [facility] Coding Staff appreciate your assistance in clarifying documentation. Please respond to the clarification below the line at the bottom and electronically sign. The CDI & [facility] Coding staff will review the response and follow-up if needed. Please note: Queries are made part of the Legal Health Record. If you have any questions, please contact the author of this message via ITS. Doctor/Provider: Cristal Pascual The final diagnosis of the pathology report states acute appendicitis& Schwann cellhamartoma. Coding guidelines do not allow coding professionals to code based on pathology results; therefore, clarification is requested. History/risk factors: 33yo F, Acute appendicitiss/pappendectomy, blurred visionlikely d/t scopolamine, hypotensionpossibly d/tdehydration& may be d/t scopolamine patch Clinical Indicators: Acute appendicitiswith transmuralinflammationand fibrous obliterationof the distal tip. Incidental benign mucosal Schwann cellhamartoma, see note. Notes: Sections examined show a minute proliferation of bland spindled cells within the mucosa. S100 immunostain performed onblockA1 and evaluated with an appropriate positive control demonstrates positive staining of the mucosal spindle cells. 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 Treatment: Acute appendicitiswith transmuralinflammationand fibrous obliterationof the distal tip. Incidental benign mucosal Schwann cellhamartoma, see note. Please clarify if you agree with the pathology report diagnosis of acute appendicitis& Schwann cellhamartoma: [ ] Yes [ ] Acute appendicitis& Schwann cellhamartoma [ ] Acute appendicitis only [ ] No [ X] Other (please specify ... I am not able to determine as I am not a pathologist. [ ] Unable to determine (Template Last Revised: April 2020) MTDD
--- NOTE | 2024-03-10 10:20 | CDI ---
Documentation Clarification Form Date: 03/10/2024 10:07:20 AM From: Irais Escalona Phone: Admit Date: 03/02/2024 05:48:00 PM Patient Name: Belén Jeronimo Visit Number: [id number] Discharge Date: 03/06/2024 03:09:00 PM ATTENTION: The Clinical Documentation Specialists (CDI) and [facility] Coding Staff appreciate your assistance in clarifying documentation. Please respond to the clarification below the line at the bottom and electronically sign. The CDI & [facility] Coding staff will review the response and follow-up if needed. Please note: Queries are made part of the Legal Health Record. If you have any questions, please contact the author of this message via ITS. Doctor/Provider: Cristal Pascual Postoperative hypotension is documented per Consult Note, Progress Note 03/06 and [facility]. Additional clarification regarding hypotension is requested. Patients Admitting Diagnosis: Acute appendicitis Post-Operative Diagnosis: Acute appendicitis Procedure performed: Laparoscopic appendectomy History/Risk Factors: 33yo F, Acute appendicitis s/p appendectomy, blurred vision & hypotension possibly d/t dehydration & may be d/t scopolamine patch, vaping Clinical Indicators: 03/06 T 98.3 F Pulse 62 Resp 19 BP 102/68 Pulse Ox 98 FiO2 Echo: Normal left ventricular size and systolic function. Mildmitral and tricuspid regurgitation Treatment: 2D echo ordered. Await results. Continue to monitor bloodpressure. Smokingcessation encouraged. Patient may be discharged home today from a cardiac standpoint pending echo. Please clarify if hypotension is a complication of the surgical procedure? [ ] Yes [ X ] No [ ] Other, please specify [ ] Unable to determine (Template Last Revised: April 2020) MTDD
== END 2024-03-06 15:09 | disposition home or self-care (01) | DRG 234 ==
LOC: EC 15:07 → 6NMEDSUR 17:47 → OBSVTOIN 17:48 → 6NMEDSUR 18:32 → 4SSUR 20:00
PROVIDERS: ADMIT Surgery; ATTEND Surgery
PROC: 0DTJ4ZZ Resection of Appendix, Percutaneous Endoscopic Approach (ICD-10-PCS; principal; 2024-03-03 14:30)
DX: K35.890 Other acute appendicitis without perforation or gangrene (principal); I95.2 Hypotension due to drugs; Q85.89 Other phakomatoses, not elsewhere classified; Z86.19 Personal history of other infectious and parasitic diseases; F17.290 Nicotine dependence, other tobacco product, uncomplicated; H53.8 Other visual disturbances; E86.0 Dehydration; T44.3X5A Adverse effect of other parasympatholytics [anticholinergics and antimuscarinics] and spasmolytics, initial encounter; E66.9 Obesity, unspecified; Z68.33 Body mass index [BMI] 33.0-33.9, adult
CPT/HCPCS: 36415; 74174; 74177; 80048; 80053; 81001; 81025; 82150; 83605; 83690; 85025; 85027; 87040; 88304; 88342; 93306; 96361; 96365; 96375; 99285